=== PATIENT | female | born 2000 | race Hispanic/Latino ===

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

== ENCOUNTER 2020-06-09 10:46 | Emergency (ER) | payer MEDICAID ==
[~2020-06-09] VITALS: Ht 167.7 cm; Wt 99.7 kg
[~2020-06-09 10:46] MED LIST changes: +ESCI20TA39; -ESCI20TA45; +FERR325T18 PO; +PREN-37 PO
--- NOTE | 2020-06-09 11:23 | ED GI ---
General Chief Complaint: Abdominal/GI Problems Stated Complaint: SOB,CLINTON,MUSCLE PAIN,LOSS OF TASTE Nursing Triage Note: Pt ambulatory to ED. Pt reports family has been sick with vomiting for the past several days. Pt reports developing nausea, diarrhea, headache and sweating last night. Pt reports feeling better today, but wants to be checked. Sepsis Screen: No Definite Risk Source of Information: Patient Exam Limitations: No Limitations History of Present Illness Date Seen by Provider: Jun 09, 2020 Time Seen by Provider: 11:04 Initial Comments The patient arrives to the ER by private conveyance from home with chief complaint that since yesterday she has been experiencing headache, diarrhea nausea but no vomiting. She had some sweats but never checked for a fever. She has no significant medical history. She is about a month . She is not breast-feeding. All of her family who she lives with have been sick for the past 3 days with GI symptoms and they thought it was just a viral bug but because of the kids and she became sick today the kids went to the urgent care clinic to be tested and she came here. She has not been able to tolerate any fluids because of nausea since yesterday. No dysuria discharge. She has not taken anything for diarrhea. She did take some Tylenol yesterday. Nursing reports temperature of 99.8. Patient has a Nexplanon. Her delivery was by Dr. Lee. She does not follow with a primary care doctor. Allergies and Home Medications Allergies Coded Allergies: No Known Drug Allergies (Unverified , 12/31/19) Home Medications Ferrous Sulfate 325 Mg Tablet, 325 MG PO DAILY@0800 Prescribed by: DARIAN LEE on 01/02/20 1007 Ondansetron 4 Mg Tab.rapdis, 4 MG PO Q6H PRN for NAUSEA/VOMITING Prescribed by: YULI BLANCHARD on 06/09/20 1210 Vit/Iron Fumarate/FA 1 Each Tablet, 1 EACH PO DAILY, (Reported) Patient Home Medication List Home Medication List Reviewed: Yes Review of Systems Review of Systems Constitutional: chills, diaphoresis; No fever; malaise EENTM: No Blurred Vision, No Double Vision Respiratory: Denies Cough, Denies Shortness of Air Cardiovascular: Denies Chest Pain, Denies Lightheadedness Gastrointestinal: See HPI, Abdominal Pain (Epigastric); Denies Constipated; Diarrhea, Nausea, Poor Fluid Intake Genitourinary: Denies Burning, Denies Discharge Musculoskeletal: No back pain, No joint pain All Other Systems Reviewed Negative Unless Noted: Yes Past Owumhsl-Bxxkzo-Uahwqx Hx Patient Social History Alcohol Use: Denies Use Smoking Status: Never a Smoker Type Used: Cigarettes Former Smoker, Quit: Dec 30, 2016 2nd Hand Smoke Exposure: No Recent Infectious Disease Expo: No Recent Hopitalizations: No Immunizations Up To Date Tetanus Booster (TDap): Less than 5yrs PED Vaccines UTD: Yes Seasonal Allergies Seasonal Allergies: No Past Medical History Surgeries: No Respiratory: No Cardiac: No Neurological: No Reproductive Disorders: No Female Reproductive Disorders: Denies Sexually Transmitted Disease: No HIV/AIDS: No Genitourinary: No Gastrointestinal: Yes Gastroesophageal Reflux Musculoskeletal: No Endocrine: No HEENT: No Loss of Vision: Denies Hearing Impairment: Denies Cancer: No Psychosocial: Yes Anxiety, Depression Integumentary: No Blood Disorders: No Family Medical History Asthma G8 SISTER Colon cancer 19 FATHER () Diabetes mellitus 19 MOTHER (TYPE 1) FH: colon cancer 19 FATHER ( in 40's) Hypertension 19 MOTHER Physical Exam Vital Signs Vital Signs - First Documented 06/09/20 10:59 Temp 37.3 Pulse 125 Resp 19 B/P (MAP) 128/64 (85) Pulse Ox 97 O2 Delivery Room Air Capillary Refill : Less Than 3 Seconds Height/Weight/BMI Height: 5'6.00" Weight: 135lbs. oz. 61.202900kc; 35.00 BMI Method:Stated General Appearance: WD/WN, mild distress HEENT: PERRL/EOMI; No pharynx normal (Mildly dry mucosa) Neck: full range of motion, normal inspection Respiratory: lungs clear, normal breath sounds, no respiratory distress, no accessory muscle use (Oxygen saturation 98% on room air with nonlabored breathing.) Cardiovascular: normal peripheral pulses, regular rate, rhythm Peripheral Pulses: 2+ Dorsalis Pedis (R), 2+ Left Dors-Pedis (L) Gastrointestinal: normal bowel sounds (Quiescent), non tender, soft, other (No mesenteric signs. Negative for psoas sign, Rovsing sign, McBurney's point tenderness, Puente sign.) Extremities: normal range of motion, non-tender, normal capillary refill Neurologic/Psychiatric: alert, normal mood/affect, oriented x 3 Skin: normal color, warm/dry Progress/Results/Core Measures Results/Orders Lab Results Laboratory Tests Test 06/09/20 11:19 Range/Units White Blood Count 13.2 H 4.3-11.0 10^3/uL Red Blood Count 5.32 H 3.80-5.11 10^6/uL Hemoglobin 14.1 11.5-16.0 g/dL Hematocrit 44 35-52 % Mean Corpuscular Volume 82 80-99 fL Mean Corpuscular Hemoglobin 27 25-34 pg Mean Corpuscular Hemoglobin Concent 32 32-36 g/dL Red Cell Distribution Width 14.3 10.0-14.5 % Platelet Count 328 130-400 10^3/uL Mean Platelet Volume 10.0 9.0-12.2 fL Immature Granulocyte % (Auto) 0 % Neutrophils (%) (Auto) 91 H 42-75 % Lymphocytes (%) (Auto) 4 L 12-44 % Monocytes (%) (Auto) 4 0-12 % Eosinophils (%) (Auto) 1 0-10 % Basophils (%) (Auto) 0 0-10 % Neutrophils # (Auto) 12.1 H 1.8-7.8 10^3/uL Lymphocytes # (Auto) 0.5 L 1.0-4.0 10^3/uL Monocytes # (Auto) 0.5 0.0-1.0 10^3/uL Eosinophils # (Auto) 0.1 0.0-0.3 10^3/uL Basophils # (Auto) 0.0 0.0-0.1 10^3/uL Immature Granulocyte # (Auto) 0.1 0.0-0.1 10^3/uL Neutrophils % (Manual) 76 % Lymphocytes % (Manual) 9 % Monocytes % (Manual) 3 % Band Neutrophils 12 % Blood Morphology Comment NORMAL Urine Color YELLOW Urine Clarity CLEAR Urine pH 8.5 5-9 Urine Specific [place] 1.015 L 1.016-1.022 Urine Protein 2+ H NEGATIVE Urine Glucose (UA) NEGATIVE NEGATIVE Urine Ketones NEGATIVE NEGATIVE Urine Nitrite NEGATIVE NEGATIVE Urine Bilirubin NEGATIVE NEGATIVE Urine Urobilinogen 1.0 < = 1.0 MG/DL Urine Leukocyte Esterase TRACE H NEGATIVE Urine RBC (Auto) NEGATIVE NEGATIVE Urine RBC NONE /HPF Urine WBC 0-2 /HPF Urine Crystals NONE /LPF Urine Bacteria FEW H /HPF Urine Casts NONE /LPF Urine Mucus MODERATE H /LPF Urine Culture Indicated NO Sodium Level 138 135-145 MMOL/L Potassium Level 4.0 3.6-5.0 MMOL/L Chloride Level 107 98-107 MMOL/L Carbon Dioxide Level 21 21-32 MMOL/L Anion Gap 10 5-14 MMOL/L Blood Urea Nitrogen 13 7-18 MG/DL Creatinine 0.81 0.60-1.30 MG/DL Estimat Glomerular Filtration Rate > 60 BUN/Creatinine Ratio 16 Glucose Level 107 H 70-105 MG/DL Calcium Level 9.2 8.5-10.1 MG/DL Corrected Calcium 8.9 8.5-10.1 MG/DL Total Bilirubin 1.0 0.1-1.0 MG/DL Aspartate Amino Transf (AST/SGOT) 20 5-34 U/L Alanine Aminotransferase (ALT/SGPT) 25 0-55 U/L Alkaline Phosphatase 64 40-136 U/L C-Reactive Protein High Sensitivity 1.80 H 0.00-0.50 MG/DL Total Protein 7.7 6.4-8.2 GM/DL Albumin 4.4 3.2-4.5 GM/DL Lipase 23 8-78 U/L Coronavirus 2018 (ANDREY) Negative Negative Micro Results Microbiology 06/09/20 Influenza Types A,B Antigen (HOLLI) - Final, Complete My Orders Orders - YULI BLANCHARD Ed Iv/Invasive Line Start (06/09/20 11:19) Lactated Ringers (Lr 1000 Ml Iv Solution (06/09/20 11:30) Ketorolac Injection (Toradol Injection) (06/09/20 11:30) Ondansetron Injection (Zofran Injectio (06/09/20 11:30) Cbc With Automated Diff (06/09/20 11:19) Comprehensive Metabolic Panel (06/09/20 11:19) Hs C Reactive Protein (06/09/20 11:19) Ua Culture If Indicated (06/09/20 11:19) Urine Bedside (06/09/20 11:19) Influenza A And B Antigens (06/09/20 11:23) Covid 19 Inhouse Test (06/09/20 11:23) Coronavirus Sars-Cov-2 So 2018 (06/09/20 11:23) Lipase (06/09/20 11:28) Manual Differential (06/09/20 11:19) Medications Given in ED Current Medications Medications Dose Ordered Sig/Jp Route Start Time Stop Time Status Last Admin Dose Admin Ketorolac Tromethamine 30 mg ONCE ONCE IVP 06/09/20 11:30 06/09/20 11:31 DC 06/09/20 11:40 30 MG Lactated Ringer's 1,000 ml @ 0 mls/hr Q0M ONCE IV 06/09/20 11:30 06/09/20 11:31 DC 06/09/20 11:37 1,000 MLS/HR Ondansetron HCl 4 mg ONCE ONCE IVP 06/09/20 11:30 06/09/20 11:31 DC 06/09/20 11:38 4 MG Vital Signs/I&O 06/09/20 10:59 Temp 37.3 Pulse 125 Resp 19 B/P (MAP) 128/64 (85) Pulse Ox 97 O2 Delivery Room Air Blood Pressure Mean: 85 Progress Progress Note : Time: 11:27 Progress Note Suspect her epigastric abdominal discomfort is related to her nausea and retching. Could also be related to her diarrhea. Just the same because of her 130 heart rate we will give her a liter of lactated Ringer's and check some labs. It is reasonable to check her for influenza and COVID-19. Suspect her symptoms could worsen. We did discuss conservative management with Tylenol, ibuprofen, loperamide and will send her some Zofran. Zofran and Toradol now and will check basic labs including a lipase. Departure Impression Primary Impression: Gastroenteritis and colitis, viral Disposition: 01 HOME, SELF-CARE Condition: Stable Departure-Patient Inst. Decision time for Depature: 12:08 Referrals: [facility] (PCP/Family) Primary Care Physician Patient Instructions: Viral Gastroenteritis, Adult (DC) Add. Discharge Instructions: Drink plenty of fluids. Sports drinks are recommended. Ondansetron 1 tablet every 6 hours under the tongue as necessary for nausea and/or vomiting. If your diarrhea does not conclude today then I would suggest loperamide or Imodium. 2 tablets to start followed by 1 tablet every 4 hours afterwards that you are still having watery, loose stools. Tylenol and Motrin for body aches and fever. Return to ER for worsening symptoms or if your oxygen saturation were to go consistently below 90% at rest. Expect your symptoms to resolve over the next 3 to 5 days. Follow-up with your primary care doctor as necessary for management of symptoms. Your first Covid test is negative but the more sensitive test will take about 2 days to get results. Someone should call you with the results whether it is negative or positive. If your Covid test is positive you need to be on quarantine for at least 10 days. You then need to be 72 hours symptoms free before returning out of quarantine without using any medications to mask your symptoms. If your Covid test is negative however then you just need to be 72 hours symptoms free before returning out of quarantine. All discharge instructions reviewed with patient and/or family. Voiced understanding. Scripts Ondansetron (Ondansetron Odt) 4 Mg Tab.rapdis 4 MG PO Q6H PRN for NAUSEA/VOMITING, #15 TAB 0 Refills Prov: YULI BLANCHARD 06/09/20 Work/School Note: Work Release Form Date Seen in the Emergency Department: Jun 09, 2020 Return to Work: Jun 18, 2020 Restrictions: No Restrictions Other Restrictions Listed Below: Off quarantine when symptom-free for 72 hours without meds to mask symptoms YULI BLANCHARD Jun 09, 2020 11:22
[2020-06-09] MEDS ORDERED: KETOROLAC 30 MG/ML VIAL IVP ONE (11:30)
[2020-06-09] MEDS ORDERED: ONDANSETRON 4 MG/2 ML (SDV) Z0FRAN IVP ONE (11:30)
[2020-06-09] MEDS ORDERED: LACTATED RINGERS 1,000 ML IV ONE (11:30)
[2020-06-09 11:39] LABS: BILIRUBIN,URINE NEGATIVE (NEGATIVE); CLARITY,URINE CLEAR; COLOR,URINE YELLOW; GLUCOSE, URINE (UA) NEGATIVE (NEGATIVE); KETONES,URINE NEGATIVE (NEGATIVE); LEUKOCYTE ESTERASE ,URINE TRACE (NEGATIVE); NITRITE,URINE NEGATIVE (NEGATIVE); PH,URINE 8.5 (5-9); PROTEIN,URINE 2+ (NEGATIVE)
[2020-06-09 11:40] LABS: BASOPHILS % (AUTO) 0 % (0-10); EOSINOPHILS # (AUTO) 0.1 10^3/uL (0.0-0.3); EOSINOPHILS % (AUTO) 1 % (0-10); HEMATOCRIT 44 % (35-52); HEMOGLOBIN 14.1 g/dL (11.5-16.0); LYMPHOCYTES # (AUTO) 0.5 10^3/uL (1.0-4.0); LYMPHOCYTES % (AUTO) 4 % (12-44); MEAN CORPUSCULAR HEMOGLOBIN 27 pg (25-34); MEAN CORPUSCULAR HGB CONC 32 g/dL (32-36); MEAN CORPUSCULAR VOLUME 82 fL (80-99); MONOCYTES # (AUTO) 0.5 10^3/uL (0.0-1.0); MONOCYTES % (AUTO) 4 % (0-12); NEUTROPHILS # (AUTO) 12.1 10^3/uL (1.8-7.8); NEUTROPHILS % (AUTO) 91 % (42-75); PLATELET COUNT 328 10^3/uL (130-400); WHITE BLOOD COUNT 13.2 10^3/uL (4.3-11.0)
[2020-06-09 11:50] LABS: ALBUMIN 4.4 GM/DL (3.2-4.5); CHLORIDE 107 MMOL/L (98-107); SODIUM 138 MMOL/L (135-145)
[2020-06-09 11:51] LABS: CALCIUM 9.2 MG/DL (8.5-10.1)
[2020-06-09 11:52] LABS: GLUCOSE 107 MG/DL (70-105); TOTAL PROTEIN 7.7 GM/DL (6.4-8.2)
[2020-06-09 11:53] LABS: CARBON DIOXIDE 21 MMOL/L (21-32)
[2020-06-09 11:56] LABS: ALKALINE PHOSPHATASE 64 U/L (40-136); CREATININE SERUM 0.81 MG/DL (0.60-1.30); GFR ESTIMATED > 60
[2020-06-09 11:57] LABS: BUN/CREATININE RATIO 16
[2020-06-09 11:59] LABS: ALANINE AMINOTRANSFERASE 25 U/L (0-55); LIPASE 23 U/L (8-78); WBC,URINE 0-2 /HPF
[2020-06-09 12:00] LABS: BACTERIA,URINE FEW /HPF
[2020-06-09 12:05] LABS: BAND NEUTROPHILS 12 %; LYMPHOCYTES % (MANUAL) 9 %; MONOCYTES % (MANUAL) 3 %; NEUTROPHILS % (MANUAL) 76 %; RBC MORPH NORMAL
[2020-06-09] MEDS ORDERED: ONDA4TAB11 PO (12:10)
[2020-06-09 12:54] VITALS: BP 111/65
== END 2020-06-09 12:54 | disposition home or self-care (01) ==
LOC: EDUNIT# 10:46 → ER 10:48
DX: A08.4 Viral intestinal infection, unspecified (principal); Z87.891 Personal history of nicotine dependence; Z20.822 Contact with and (suspected) exposure to COVID-19; Z83.3 Family history of diabetes mellitus; Z82.49 Family history of ischemic heart disease and other diseases of the circulatory system; Z80.0 Family history of malignant neoplasm of digestive organs
CPT/HCPCS: 80053; 81000; 83690; 84703; 85007; 85027; 86141; 87804; 99284; U0002; 36415; 87635

== ENCOUNTER 2021-04-13 16:04 | Emergency (ER) | payer MEDICAID ==
[~2021-04-13] VITALS: Ht 167 cm; Wt 108.0 kg
[~2021-04-13 16:04] MED LIST changes: +ONDA4TAB11 PO
--- NOTE | 2021-04-13 17:42 | ED Cough/URI ---
General Chief Complaint: COVID19 Suspect/Confirmed Stated Complaint: CLINTON,SORE THROAT,DIARRHEA,LOSS OF TASTE Source: patient Exam Limitations: no limitations History of Present Illness Date Seen by Provider: Apr 13, 2021 Time Seen by Provider: 17:40 Initial Comments Patient is a 20-year-old female who presents ED with flulike symptoms. Reports body aches, fatigue and generalized weakness. She reports a mild cough and sore throat. 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 She denies of any ear pain, fever, vomiting, diarrhea. Denies of any abdominal pain or concern for . Denies taking medication at home. Allergies and Home Medications Allergies Coded Allergies: No Known Drug Allergies (Unverified , 12/31/19) Patient Home Medication List Home Medication List Reviewed: Yes Ferrous Sulfate (Ferrous Sulfate) 325 Mg Tablet, 325 MG PO DAILY@0800 Prescribed by: DARIAN LEE on 01/02/20 1007 Ondansetron (Ondansetron Odt) 4 Mg Tab.rapdis, 4 MG PO Q6H PRN for NAUSEA/VOMITING Prescribed by: YULI BLANCHARD on 06/09/20 1210 Vit/Iron Fumarate/FA ( Tablet) 1 Each Tablet, 1 EACH PO DAILY, (Reported) Entered as Reported by: OSCAR JIMENEZ on 12/31/19 0734 Review of Systems Review of Systems Constitutional: dizziness, fever, weakness EENTM: throat pain; No ear discharge, No eye pain, No mouth pain, No nose congestion Respiratory: cough; No short of breath Cardiovascular: No chest pain, No edema Gastrointestinal: No abdominal pain, No diarrhea, No nausea, No vomiting Genitourinary: No decreased output Musculoskeletal: no symptoms reported, see HPI, back pain, joint pain Skin: change in color, change in hair/nails All Other Systems Reviewed Negative Unless Noted: Yes Past Frvkkwj-Sqylpx-Kffyhv Hx Immunizations Up To Date Tetanus Booster (TDap): Less than 5yrs PED Vaccines UTD: Yes Seasonal Allergies Seasonal Allergies: No Past Medical History Surgeries: No Respiratory: No Cardiac: No Neurological: No Reproductive Disorders: No Female Reproductive Disorders: Denies Sexually Transmitted Disease: No HIV/AIDS: No Genitourinary: No Gastrointestinal: Yes Gastroesophageal Reflux Musculoskeletal: No Endocrine: No HEENT: No Loss of Vision: Denies Hearing Impairment: Denies Cancer: No Psychosocial: Yes Anxiety, Depression Integumentary: No Blood Disorders: No Family Medical History Asthma G8 SISTER Colon cancer 19 FATHER () Diabetes mellitus 19 MOTHER (TYPE 1) FH: colon cancer 19 FATHER ( in 40's) Hypertension 19 MOTHER Physical Exam Vital Signs - First Documented 04/13/21 16:45 Temp 36.1 Pulse 83 Resp 18 B/P (MAP) 127/80 (96) Pulse Ox 97 Capillary Refill : Height: 5'6.00" Weight: 135lbs. oz. 61.747337mq; 35.00 BMI Method:Stated General Appearance: WD/WN, no apparent distress Eyes: Bilateral Eye Normal Inspection, Bilateral Eye PERRL, Bilateral Eye EOMI HEENT: PERRL/EOMI, normal ENT inspection, TMs normal, other (Subtle swelling bilateral oral tonsils. No purulent drainage. No cervical adenopathy) Neck: non-tender, full range of motion, supple, normal inspection Respiratory: chest non-tender, lungs clear, normal breath sounds, no respiratory distress, no accessory muscle use Cardiovascular: regular rate, rhythm, no edema, no gallop, no JVD Gastrointestinal: normal bowel sounds, non tender, soft, no organomegaly Extremities: normal range of motion, non-tender, normal inspection Skin: normal color, warm/dry Progress/Results/Core Measures Suspected Sepsis SIRS Temperature: Pulse: Respiratory Rate: Blood Pressure / Mean: Results/Orders Lab Results Laboratory Tests Test 04/13/21 16:45 Range/Units Influenza Type A (RT-PCR) Not Detected Not Detecte Influenza Type B (RT-PCR) Not Detected Not Detecte SARS-CoV-2 RNA (RT-PCR) Not Detected Not Detecte My Orders Orders - MEGA FREIRE Covid 19 Inhouse Test (04/13/21 16:31) Influenza A And B By Pcr (04/13/21 16:31) Vital Signs/I&O 04/13/21 16:45 Temp 36.1 Pulse 83 Resp 18 B/P (MAP) 127/80 (96) Pulse Ox 97 Capillary Refill : Departure Communication (PCP) Patient Covid and influenza negative. Patient exam otherwise benign. Vital signs stable. No vomiting or diarrhea. Oropharynx with very minimal swollen tonsils. No purulent drainage. Tolerating secretions. Systemic symptoms of body aches and fatigue, cough, sore throat. Likely viral nature. Continue with conservative treatment at home. If any worsening symptoms return back to ED for further evaluation. Follow-up with your PCP in 2 to 3 days for reevaluation. Impression Primary Impression: Viral syndrome Disposition: HOME, SELF-CARE Condition: Stable Departure-Patient Inst. Decision time for Depature: 17:45 Referrals: [facility] (PCP) Primary Care Physician Patient Instructions: Viral Syndrome (DC) Work/School Note: Work Release Form Date Seen in the Emergency Department: Apr 13, 2021 Return to Work: Apr 16, 2021 MEGA FREIRE Apr 13, 2021 17:42
[2021-04-13 17:48] VITALS: BP 127/80
== END 2021-04-13 17:48 | disposition home or self-care (01) ==
LOC: EDUNIT# 16:04 → ER 16:06
DX: B34.9 Viral infection, unspecified (principal); Z20.822 Contact with and (suspected) exposure to COVID-19
CPT/HCPCS: 87636; 99283

== ENCOUNTER 2021-12-06 16:51 | Emergency (ER) | payer BC, MEDICAID ==
[2021-12-06] MEDS ORDERED: PEN G PROC/BENZATH 1.2 M UNITS/2 ml (BICILLIN C-R) SYR IM ONE (17:30)
--- NOTE | 2021-12-06 17:37 | ED General ---
General Chief Complaint: Oral/Throat Problems Stated Complaint: SORE THROAT/DIFFICULTY SWALLOWING Source of Information: Patient Exam Limitations: No Limitations (SONIA MORAN MED STUDENT) History of Present Illness Date Seen by Provider: Dec 06, 2021 Time Seen by Provider: 17:28 Initial Comments Arianna Man is a 20 yo female who presents for sore throat since Tuesday. Pt reports she has had sore throat and right sided neck swelling since Tuesday. She states her tonsils are swollen and she can feel that her neck is full on the right side. Pt reports she has trouble swallowing, opening her mouth and breathing d/t tonsillar enlargement. Pt reports cough nonproductive of sputum. She has taken tylenol and nyquil with short lasting relief. She denies recent sick contacts or travel. She denies fever, chills, SOA, congestion, dysuria, frequency, N/V/D, abdominal pain. Pt went to walk in care at [facility] for this and COVID, Strep and mono tests were all negative. Pt felt like her throat pain was worsening so she came here. She denies use of drugs, ETOH, tobacco. PCP is Dr. Davis. Timing/Duration: 2-3 Days Severity: Moderate Modifying Factors: worse with Eating Associated Systoms: No Chest Pain; Cough; No Fever/Chills, No Headaches; Loss of Appetite (d/t throat pain); No Nausea/Vomiting, No Shortness of Air (SONIA MORAN MED STUDENT) Allergies and Home Medications Allergies Coded Allergies: No Known Drug Allergies (Unverified , 12/31/19) Patient Home Medication List Home Medication List Reviewed: Yes (OSCAR ANNA MD) Ferrous Sulfate (Ferrous Sulfate) 325 Mg Tablet, 325 MG PO DAILY@0800 Prescribed by: DARIAN LEE on 01/02/20 1007 Ondansetron (Ondansetron Odt) 4 Mg Tab.rapdis, 4 MG PO Q6H PRN for NAUSEA/VOM ITING Prescribed by: YULI BLANCHARD on 06/09/20 1210 Vit/Iron Fumarate/FA ( Tablet) 1 Each Tablet, 1 EACH PO DAILY, (Reported) Entered as Reported by: OSCAR JIMENEZ on 12/31/19 0734 Review of Systems Review of Systems Constitutional: No chills, No fever EENTM: ear pain (right), throat swelling (right); No vision loss, No nose congestion Respiratory: cough; No short of breath Cardiovascular: No chest pain, No palpitations Gastrointestinal: No abdominal pain, No constipation, No diarrhea, No nausea, No vomiting Genitourinary: No dysuria, No frequency Musculoskeletal: No back pain, No muscle pain Skin: No lesions, No lumps, No rash Psychiatric/Neurological: Denies Headache, Denies Numbness, Denies Paresthesia Hematologic/Lymphatic: Denies No Symptoms Reported Immunological/Allergic: denies no symptoms reported (SONIA MORAN [employer] STUDENT) Past Zbnqcev-[id number]-Rpzpib Hx Patient Social History Tobacco Use?: No Use of E-Cig and/or Vaping dev: No Substance use?: No Alcohol Use?: No Pt feels they are or have been: No (SONIA MORAN [employer] STUDENT) Immunizations Up To Date Tetanus Booster (TDap): Less than 5yrs PED Vaccines UTD: Yes Influenza Vaccine Up-to-Date: Yes; Up-to-Date First/Initial COVID19 Vaccinat: FEBRUARY 22 Second COVID19 Vaccination Marques: MARCH COVID19 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[employer] (SONIA MORAN [employer] STUDENT) Seasonal Allergies Seasonal Allergies: No (SONIA MORAN [employer] SH[employer]ETA) Past Medical History Surgery/Hospitalization HX: DENIES Surgeries: No Respiratory: No Cardiac: No Neurological: No Reproductive Disorders: No Female Reproductive Disorders: Denies Sexually Transmitted Disease: No HIV/AIDS: No Genitourinary: No Gastrointestinal: Yes Gastroesophageal Reflux Musculoskeletal: No Endocrine: No HEENT: No Loss of Vision: Denies Hearing Impairment: Denies Cancer: No Psychosocial: Yes Anxiety, Depression Integumentary: No Blood Disorders: No (SONIA MORAN [employer] STUDENT) Family Medical History Asthma G8 SISTER Colon cancer 19 FATHER () Diabetes mellitus 19 MOTHER (TYPE 1) FH: colon cancer 19 FATHER ( in 40's) Hypertension 19 MOTHER Physical Exam Vital Signs Vital Signs - First Documented 12/06/21 17:05 Temp 37.0 Pulse 88 Resp 16 B/P (MAP) 131/92 (105) (OSCAR ANNA MD) Vital Signs Capillary Refill : (SONIA MORAN [employer] STUDENT) Height, Weight, BMI Height: 5'6.00" Weight: 135lbs. oz. 61.520335mf; 38.00 BMI Method:Stated General Appearance: No Apparent Distress, WD/WN HEENT: PERRL/EOMI, Pharyngeal Erythema, Tonsillar Enlargement Neck: Full Range of Motion, Lymphadenopathy (R) Respiratory: Chest Non Tender, Lungs Clear Cardiovascular: Regular Rate, Rhythm, No Murmur Gastrointestinal: Normal Bowel Sounds, Non Tender Extremity: Non Tender, No Pedal Edema Neurologic/Psychiatric: Alert, Oriented x3, Normal Mood/Affect Skin: Normal Color, Warm/Dry (SONIA MORAN MED STUDENT) Progress/Results/Core Measures Suspected Sepsis SIRS Temperature: Pulse: Respiratory Rate: Blood Pressure / Mean: (SONIA MORAN MED STUDENT) Results/Orders My Orders Orders - OSCAR ANNA MD Dexamethasone Oral Soln (Ed) (Decadron I (12/06/21 17:27) Penicillin G Benzathine Inject (Bicillin (12/06/21 17:45) (OSCAR ANNA MD) Medications Given in ED (OSCAR ANNA MD) Vital Signs/I&O 12/06/21 12/06/21 17:05 18:03 Temp 37.0 37.0 Pulse 88 80 Resp 16 16 B/P (MAP) 131/92 (105) 127/87 (OSCAR ANNA MD) Vital Signs/I&O Capillary Refill : (SONIA MORAN MED STUDENT) Progress Note : Time: 17:52 Progress Note Patient is a 20-year-old female who presents to the emergency department today with a chief complaint of sore throat, swelling, generalized malaise. Onset 2 days ago. She went to [facility] urgent care and was tested for mono, strep and COVID. She states these were negative however she also states that the provider "did not even look in my throat". She endorses a mild cough. No rashes. She has been taking Tylenol and ibuprofen and doing warm salt water rinses without relief of symptoms. No sick contacts at home. Physical exam is pertinent for significant bilateral anterior cervical chain lymphadenopathy with significant tonsillar edema bilaterally right greater than left, mild purulence to the right tonsil. No evidence of peritonsillar abscess. Uvula is midline. No odontogenic infections identified. Lungs are clear heart is regular. No observable rashes. I advised the patient that there is a certain degree of false negativity to rapid strep screens and that I felt like it would be pertinent to go ahead and treat her for strep throat. I offered Bicillin versus oral pills for 10 days. She elected to do the Bicillin. I also gave her 10 mg of Decadron orally for the inflammation and swelling in her throat. Return precautions provided. She verbalized understanding. All questions are sought and answered. (OSCAR ANNA MD) Departure Impression Primary Impression: Pharyngitis Qualified Codes: J02.9 - Acute pharyngitis, unspecified Disposition: HOME, SELF-CARE Condition: Stable Departure-Patient Inst. Decision time for Depature: 17:51 (OSCAR ANNA MD) Referrals: [facility] (PCP/Family) Primary Care Physician Patient Instructions: Viral Pharyngitis (DC) Add. Discharge Instructions: Drink plenty of fluids to stay well-hydrated. You have been given a shot of penicillin today to treat bacterial throat infect ion. This will cover strep. You have also been given some steroids which will help with the swelling in your tonsils. You can take ljea-[id number]-wjebzte Tylenol or ibuprofen as needed for pain. Take 3 ibuprofen which is 600 mg with food every 6 hours as needed. You can take 2 extra strength Tylenol every 6 hours as well. Continue warm salt water gargles. If you develop a fever, worsening swelling or pain, hoarse voice/shortness of breath please come back to the emergency room for reevaluation. Verification and Attestation of Medical Student E/M Service A medical student performed and documented this service in my presence. I reviewed and verified all information documented by the medical student and made modifications to such information, when appropriate. I personally performed the physical exam and medical decision making. Oscar Anna, Dec 06, 2021,17:51 (OSCAR ANNA MD) SONIA MORAN MED STUDENT Dec 06, 2021 17:37 OSCAR ANNA MD Dec 06, 2021 17:50
[2021-12-06] MEDS ORDERED: PEN G BENZ (BICILLIN LA) 1.2 M UN/2 ML SYR IM ONE (17:45)
[2021-12-06 18:03] VITALS: BP 127/87
== END 2021-12-06 18:05 | disposition home or self-care (01) ==
LOC: EDUNIT# 16:51 → ER 16:53
DX: J02.9 Acute pharyngitis, unspecified (principal)
CPT/HCPCS: 99284